=== PATIENT | male | born 1990 | race Caucasian/White ===

== ENCOUNTER 2017-04-29 12:18 | Emergency (ER) | payer SELFPAY ==
[2017-04-29 12:26] VITALS: BP 126/69; PULSE 89; TEMP 99.1; BMI 26.3
--- NOTE | 2017-04-29 12:39 | PDOC ---
History of Present Illness - History of Present Illness Initial Comments: 04/29/17 12:54 The patient is a 27 year old male, with a significant past medical history for kidney stone (Dx on 04/27/17), who presents to the emergency department with increased left flank pain and new onset of chest pressure s/p discharge from the ED with Flomax, ibuprofen and tramadol for a 4 mm distal 3rd left ureteral stone w/ mild hydronephrosis on 04/27/17. The patient reports his left flank pain increased at 3am, waking him from sleep. He reports taking his medication, but denies the pain relief since. He reports an episode of vomiting today, but states he has been able to tolerate PO without reproducing emesis. He describes his chest pain at pressure and burning. He denies dysuria or hematuria. He reports his last bowel movement was 2 days ago. He denies shortness of breath, headache and dizziness. He denies fever, chills, nausea, diarrhea. He denies frequency, urgency. Allergies: NKDA <Jennifer Sinclair - Last Filed: 04/29/17 16:07> - General History Source: Patient, Old Records Exam Limitations: No Limitations <Maru Hwang - Last Filed: 04/29/17 16:15> - General Chief Complaint: Pain, Acute Stated Complaint: REVISIT Time Seen by Provider: 04/29/17 12:39 Past History <Jennifer Sinclair - Last Filed: 04/29/17 16:07> - Past Medical History Kidney Stones: Yes - Immunization History Td Vaccination: Yes Immunization Up to Date: Yes - Psycho/Social/Smoking Cessation Hx Anxiety: No Suicidal Ideation: No Smoking Status: No Smoking History: Never smoked Number of Cigarettes Smoked Daily: 0 Hx Alcohol Use: No Drug/Substance Use Hx: No Substance Use Type: None <Maru Hwang - Last Filed: 04/29/17 16:15> - Past Medical History Allergies/Adverse Reactions: Allergies Allergy/AdvReac Type Severity Reaction Status Date / Time No Known Allergies Allergy Verified 04/29/17 12:26 Home Medications: Ambulatory Orders Ibuprofen [Motrin -] 600 mg PO TID #21 tablet 04/27/17 Tamsulosin HCl [Flomax] 0.4 mg PO DAILY #7 cap.er.24h 04/27/17 Tramadol HCl 50 mg PO Q6H #20 tablet MDD 200 mg 04/27/17 Review of Systems - Review of Systems Able to Perform ROS?: Yes Comments:: 04/29/17 12:55 GENERAL/CONSTITUTIONAL: No fever or chills. No weakness. HEAD, EYES, EARS, NOSE AND THROAT: No change in vision. No ear pain or discharge. No sore throat. CARDIOVASCULAR: (+) chest burning. No shortness of breath. RESPIRATORY: No cough, wheezing, or hemoptysis. GASTROINTESTINAL: (+) vomiting, constipation. No nausea, diarrhea GENITOURINARY: (+) left flank pain. No dysuria, frequency, or change in urination. MUSCULOSKELETAL: No joint or muscle swelling or pain. No neck or back pain. SKIN: No rash NEUROLOGIC: No headache, vertigo, loss of consciousness, or change in strength/ sensation. ENDOCRINE: No increased thirst. No abnormal weight change. HEMATOLOGIC/LYMPHATIC: No anemia, easy bleeding, or history of blood clots. ALLERGIC/IMMUNOLOGIC: No hives or skin allergy. <Jennifer Sinclair - Last Filed: 04/29/17 16:07> *Physical Exam - Vital Signs Last Vital Signs Temp Pulse Resp BP Pulse Ox 99.1 F 89 18 126/69 99 04/29/17 12:23 04/29/17 12:23 04/29/17 12:23 04/29/17 12:23 04/29/17 12:23 - Physical Exam Comments: 04/29/17 12:56 GENERAL: Awake, alert, and fully oriented, in no acute distress HEAD: No signs of trauma EYES: PERRLA, EOMI, sclera anicteric, conjunctiva clear ENT: Auricles normal inspection, hearing grossly normal, nares patent, oropharynx clear without exudates. Moist mucosa NECK: Normal ROM, supple, no lymphadenopathy, JVD, or masses LUNGS: Breath sounds equal, clear to auscultation bilaterally. No wheezes, and no crackles HEART: Regular rate and rhythm, normal S1 and S2, no murmurs, rubs or gallops ABDOMEN: Soft, nontender, normoactive bowel sounds. No guarding, no rebound. No masses EXTREMITIES: Normal range of motion, no edema. No clubbing or cyanosis. No cords, erythema, or tenderness NEUROLOGICAL: Cranial nerves II through XII grossly intact. Normal speech, normal gait SKIN: Warm, Dry, normal turgor, no rashes or lesions noted. <Jennifer Sinclair - Last Filed: 04/29/17 16:07> - Vital Signs Last Vital Signs Temp Pulse Resp BP Pulse Ox 99.1 F 89 18 126/69 99 04/29/17 12:23 04/29/17 12:23 04/29/17 12:23 04/29/17 12:23 04/29/17 12:23 <Maru Hwang - Last Filed: 04/29/17 16:15> Heart Score/ECG Review - ECG Intrepretation Comment:: 04/29/17 16:08 ECG was read by Dr. Hwang at 13:49 Impression: Normal sinus rhythm <Jennifer Sinclair - Last Filed: 04/29/17 16:07> ED Treatment Course - LABORATORY CBC & Chemistry Diagram: 04/29/17 13:40 04/29/17 13:40 <Jennifer Sinclair - Last Filed: 04/29/17 16:07> - LABORATORY CBC & Chemistry Diagram: 04/29/17 13:40 04/29/17 13:40 <Maru Hwang - Last Filed: 04/29/17 16:15> Medical Decision Making - Medical Decision Making 04/29/17 14:12 27-year-old male with history of recently diagnosed nephrolithiasis 2 days ago presents to the emergency department with left flank pain, chest pain and nausea. Differential diagnosis includes but is not limited to: Renal colic, musculoskeletal pain, UTI, pyelonephritis. Plan: 1. Labs 2. EKG 3. IV fluids for hydration 4. Pain management 5. Antiemetics 6. Observe and reevaluate 04/29/17 16:09 Addendum: Labs are reviewed and are noted in the EMR. The urine analysis only has blood and ketones but is negative for nitrites and leukoesterase. EKG shows normal sinus rhythm at 70 bpm with no acute ST segment changes. I have reevaluated the patient at this time and he is feeling improved. He tolerated by mouth without nausea or vomiting. I have instructed the patient to continue his prescribed medications and to follow-up with his scheduled urology appointment on Thursday this week. <Maru Hwang - Last Filed: 04/29/17 16:15> *DC/Admit/Observation/Transfer - Attestations Scribe Attestion: 04/29/17 12:56 Documentation prepared by Jennifer Sinclair, acting as medical practitioners for Maru Hwang MD, <Jennifer Sinclair - Last Filed: 04/29/17 16:07> - Discharge Dispostion Admit: No - Attestations Physician Attestion: 04/29/17 14:13 I, Dr. Maru Hwang, attest that the scribes documentation that appears above has been prepared under my direction and personally reviewed by me in its entirety. I confirmed that the note above accurately reflects all work, treatment, procedures, and medical decision-making performed by me. <Maru Hwang - Last Filed: 04/29/17 16:15> Diagnosis at time of Disposition: Flank pain, acute, Chest pain - Discharge Dispostion Disposition: HOME Condition at time of disposition: Stable - Patient Instructions Printed Discharge Instructions: Kidney Stones -- Adult Additional Instructions: Please continue to take your medications as prescribed. Please keep your scheduled appointment with the urologist on . Return to the ED if symptoms persist, worsen or new symptoms arise. Print Language: STATELESS
[2017-04-29] MEDS ORDERED: KETOROLAC TROMETHAMINE 30 MG/1 ML VIAL IVPUSH ONE (12:53)
[2017-04-29] MEDS ORDERED: ONDANSETRON 4 MG/2 ML VIAL IVPUSH ONE (12:53)
[2017-04-29] MEDS ORDERED: SODIUM CHLORIDE 1,000 ML IV STA (12:53)
[2017-04-29] MEDS ORDERED: ONDANSETRON 4 MG/2 ML VIAL ONE (13:54)
[2017-04-29] MEDS ORDERED: KETOROLAC TROMETHAMINE 30 MG/1 ML VIAL ONE (13:59)
[2017-04-29 14:07] LABS: BASOPHIL 0.2 % (0-2.0); EOSINOPHIL 0.1 % (0-4.5); MCH 30.1 pg (25.7-33.7); MCHC 34.7 g/dl (32.0-35.9); MEAN CELL VOLUME 86.8 fl (80-96); MEAN PLT VOLUME 8.9 fl (7.5-11.1); NEUTROPHILS 84.1 % (42.8-82.8); PLATELET COUNT 180 K/MM3 (134-434); RDW 12.8 % (11.9-15.9); WHITE BLOOD COUNT 12.7 K/mm3 (4.0-10.0)
[2017-04-29 14:25] LABS: ALBUMIN 3.9 g/dl (3.4-5.0); ANION GAP 11 (8-16); CALCIUM 8.2 mg/dL (8.5-10.1); CO2 26 mmol/L (21-32); CREATININE 1.2 mg/dL (0.7-1.3); GLUCOSE,RANDOM 90 mg/dL (74-106); SGOT/AST 14 U/L (15-37); SGPT/ALT 19 U/L (12-78); TOT PROT 6.9 g/dl (6.4-8.2)
[2017-04-29 14:28] LABS: ALK PHOS 79 U/L (45-117); TROPONIN I < 0.02 ng/ml (0.00-0.05)
[2017-04-29] MEDS ORDERED: POTASSIUM CHLORIDE TABS 20 MEQ TABLET.ER (FP) PO ONE (14:51)
--- NOTE | 2017-04-29 14:53 | EKG ---
Test Reason : Blood Pressure : / mmHG Vent. Rate : 085 BPM Atrial Rate : 085 BPM P-R Int : 192 ms QRS Dur : 102 ms QT Int : 354 ms P-R-T Axes : 080 094 060 degrees QTc Int : 421 ms NORMAL SINUS RHYTHM RIGHTWARD AXIS BORDERLINE ECG NO PREVIOUS ECGS AVAILABLE Confirmed by BEN MCBRIDE, DEB ([id number] on 04/29/2017 2:52:41 PM Referred By: Confirmed By:DEB CONTRERAS MD
[2017-04-29] MEDS ORDERED: POTASSIUM CHLORIDE ORAL LIQUID 20 MEQ/15 ML ONE (15:42)
[2017-04-29 16:06] LABS: URINE APPEARANCE CLEAR; URINE BILIRUBIN NEGATIVE (NEGATIVE); URINE BLOOD 1+ (NEGATIVE); URINE COLOR COLORLESS; URINE GLUCOSE (UA) NEGATIVE (NEGATIVE); URINE KETONE 1+ (NEGATIVE); URINE LEUK ESTERASE NEGATIVE (NEGATIVE); URINE NITRITE NEGATIVE (NEGATIVE); URINE PROTEIN NEGATIVE (NEGATIVE); URINE UROBILINOGEN NEGATIVE E.U./dl (0.2-1.0)
[2017-04-29 16:15] LABS: URINE RBC 2 /hpf (0-3); URINE WBC 1 /hpf (3-5)
== END 2017-04-29 16:47 | disposition home or self-care (01) ==
LOC: JER 12:18
PROC: 3E0333Z Introduction of Anti-inflammatory into Peripheral Vein, Percutaneous Approach (ICD-10-PCS; principal; 2017-04-29)
PROC: 3E033GC Introduction of Other Therapeutic Substance into Peripheral Vein, Percutaneous Approach (ICD-10-PCS; 2017-04-29)
DX: R07.89 Other chest pain (principal); Z87.442 Personal history of urinary calculi
CPT/HCPCS: 36415; 80053; 81003; 81015; 82550; 83690; 84484; 85025; 87086; 93005; 93010; 99282-25